=== PATIENT | male | born 1985 | race Two or more races ===

== ENCOUNTER 2019-10-05 14:36 | Emergency (ER) | payer SELFPAY ==
--- NOTE | 2019-10-05 14:51 | ED.GENADUL_ITS ---
Discharge Plan Disposition Patient Disposition: HOME Condition: Good Discharge Details Chief Complaint: Abd Prob Clinical Impression: BRBPR (bright red blood per rectum), Gastritis Primary Care Provider: None,None ED Provider: Blanca Draper Home Meds and New Rx's Prescriptions: New omeprazole 40 mg capsule,delayed release(DR/EC) 40 mg PO DAILY Qty: 14 RF: 0 Discharge Instructions Additional Instructions: Encourage water intake. Please see attached information on dietary changes. Please begin medication as prescribed. You will be contacted by care management regarding follow-up with primary care physician as well as general surgery. If you develop weakness, lightheadedness, increased pain, fever/chills or other new/worsening symptom please seek care urgently once again. Discharge Data Discharge Date/Time-TO BE ENTERED AT DEPARTURE: 10/05/19 17:14 Medical Decision Making <Chrystal Thompson - Last Filed: 10/06/19 15:58> 33-year-old Bulgarian-speaking only male presents with midepigastric abdominal pain and left upper quadrant abdominal pain constipation and rectal bleeding. He reports seeing blood in his stool today. Has been having abdominal pain on and off x1 month. Denies heavy alcohol use does drink occasionally, non-smoker no marijuana. No abdominal surgical history. Labs ordered including CBC, CMP UA, EKG and CT abdomen pelvis. Hemoccult stool grossly positive. Stool, culture ordered. Protonix 40 mg IV ordered. Rectal exam performed which was very tender and not tolerated by patient. No external hemorrhoids seen. Care is to be handed over to GARCÍA Salazar oncoming provider pending CT results. Most likely disposition is discharged home with PCP establishment and follow-up with GI. <GARCÍA Mireles - Last Filed: 10/05/19 17:17> Care was transitioned myself from Kristal Thompson NP, with CT pending. In brief, patient is here for 1month epigastric discomfort and bright red blood per rectum x2 days. Patient is given Protonix. Is been hemodynamically stable. Hemoglobin of 14.8. Morning labs are unremarkable. Rectal exam was performed and no hemorrhoids were noted patient did have bright red blood on exam. CT reviewed by radiologist: FINDINGS: Lungs: Small calcified granuloma in the right lower lobe. Liver: Unremarkable. Gallbladder and bile ducts: Unremarkable. No ductal dilation. Pancreas: Unremarkable. No ductal dilation. Spleen: Unremarkable. Adrenals: Unremarkable. Kidneys and ureters: No hydronephrosis or stones. Stomach and bowel: Stomach is unremarkable. No small bowel obstruction. Large bowel is unremarkable. Appendix: The appendix is normal. Intraperitoneal space: No pneumoperitoneum. No significant fluid collection. Vasculature: Unremarkable. Lymph nodes: No enlarged lymph nodes. Bladder: Unremarkable. Reproductive: Unremarkable as visualized. Bones/joints: Chronic right L5 spondylolysis. No acute fracture. Soft tissues: Unremarkable. IMPRESSION: 1. No acute intra-abdominal findings. 2. Other chronic findings, as above. Use diplomatic interpreter/translator line to discuss these findings with the patient. Advised that I am concerned that his epigastric pain is likely related to ulcer. Patient also may have an internal hemorrhoid but is unclear at this time. Plan refer to general surgery for possible colonoscopy and endoscopy. Patient also does not have a primary care and we have requested that would be established. Patient is also requesting to discuss insurance issues with care management. Plan to continue with omeprazole. Have referred to general surgery. All his questions and concerns were addressed and he is agreed with plan. He was given return precautions. Discussed dietary changes that he should begin implementing. HPI <Chrystal [place] Filed: 10/06/19 15:58> General Mode of arrival: ambulatory . Date/Time Provider Initiated Documentation: 10/05/19 14:36 . Limitations to Documentation: language barrier (Bulgarian-speaking only diplomatic interpreter/translator used) . Information obtained by: patient . HPI Narrative: 33-year-old Bulgarian-speaking only male presents with mid epigastric abdominal pain and rectal bleeding. Patient states that the abdominal pain has been going on intermittently x1 month. He had bright red blood with stool from rectum today. He does not report heavy alcohol use. He does state that he takes Aleve on a daily basis. No vomiting no fever. No abdominal surgical history. Related Data Home Medications Medication Instructions Recorded Confirmed omeprazole 40 mg PO DAILY #14 cap 10/05/19 Previous Rx's Medication Instructions Recorded omeprazole 40 mg PO DAILY #14 cap 10/05/19 General Stated Complaint: Abd Prob CARRI: 3 Review of Systems <Chrystal Thompson [facility] Filed: 10/06/19 15:58> Narrative: Constitutional: Negative for weight loss, alert and oriented, well groomed, normal body habitus, appears comfortable. HEENT: Denies trauma, headaches, blurry vision, nasal discharge, sore throat, trouble swallowing. Chest: Denies chest pain, palpitations, irregular rhythm, hypertension. Respiratory: Denies Shortness of breath, cough, hemoptysis. GI: Denies vomiting, diarrhea, positive constipation. : Denies dysuria, hematuria, flank pain, positive rectal bleeding. Neuro: Denies dizziness, blurry vision, weakness, syncope, headache or facial numbness. Hematologic: Denies easy bruising, intolerance to heat or cold, hair loss. PFSH <Chrystal Thompson - Last Filed: 10/06/19 15:58> Social History Alcohol Intake: never Drug use: Never Substance use type: does not use Do you feel safe at home: Yes Do you feel safe in your relationship?: Yes Exam <Chrystal Thompson - Last Filed: 10/06/19 15:58> Narrative Exam Narrative: Constitutional: Allert and oriented x3. Appears stated age. Normal body habitus. Head: Normocephalic, no trauma. Eyes: Pupils PERRLA, Red reflex noted, EOM's intact. Eyelids symmetrical withour lesions, discharge, or swelling. ENT: Bilateral TM's WNL, External ear normal to inspection, no mastoid TTP, swelling, or erythema, Nasal turbinates WNL, no nasal discharge. Normal dentition, Posterior pharynx WNL, no exudate. Chest: RRR, Normal S1, S2, distal pulses intact. Resp: Lungs clear to auscultation bilaterally, no wheezes, rales, or rhonchi. Musculoskeletal: Normal gait, 5/5 strength to all four extremities. Skin: No suspicious rashes or lesions. Capillary refill ?2 sec. Neurologic: Cranial nerves II-XII intact. Alert and oriented x 3. DTR's intact. Hematologic/Lymphatic: No ecchymosis, no lymphadenopathy. GI Inspection: normal to inspection Palpation: soft Rectal Exam: visual inspection normal, normal sphincter tone, abnormal stool blood-tinged, heme positive stool gross blood and tenderness Sign Out <Chrystal Thompson - Last Filed: 10/06/19 15:58> Sign Out Data: Sign Out Comment: Pending CT result Last updated by Chrystal Thompson at 10/05/19 16:08
[2019-10-05 14:56] VITALS: BP 137/84; PULSE 84; RESP 16; TEMP 37; O2SAT 98
[2019-10-05] MEDS: Pantoprazole 40 MG VIAL IVP (15:27)
[2019-10-05 15:28] LABS: Abs Immature Grans 0.02 k/cumm (0.0-0.09); Absolute Basophil Count 0.06 k/cumm (0.0-0.2); Absolute Eosinophil Count 0.34 k/cumm (0.0-0.7); Absolute Lymphocyte Count 1.37 k/cumm (1.2-3.4); Absolute Monocyte Count 0.42 k/cumm (0.11-0.7); Absolute Neutrophil Count 3.85 k/cumm (1.2-6.7); Eosinophils % 5.6; HCT 44.8 % (40.0-50.0); HGB 14.8 g/dL (13.5-17.5); Immature Grans % 0.3 %; Lymphocytes % 22.6; Mean Corpuscular Hemoglobin 26.4 pg (27.0-33.0); Mean Corpuscular Volume 79.9 fL (80-95); Mean Platelet Volume 11.3 fL (8.0-11.0); Monocytes % 6.9; Neutrophils % 63.6; Platelet Count 264 x1000/uL (130-400); RBC 5.61 m/cumm (4.50-6.00); RBC Distribution Width 14.1 % (11.8-14.1); White Blood Cell Count 6.06 k/cumm (4.4-10.8)
[2019-10-05 15:34] LABS: Bilirubin Negative (Negative); Blood Negative (Negative); Clarity Clear (Clear); Glucose Negative (Negative); Ketones Negative (Negative); Leukocyte Esterase Negative (Negative); Nitrite Negative (Negative); Urobilinogen 0.2 EU/dL (Up TO 0.2); pH 6.5 (5-8)
[2019-10-05 15:49] LABS: ALT 70 U/L (16-63); AST 32 U/L (15-37); Alkaline Phosphatase 109 U/L (46-116); Anion Gap 8.1 mmol/L (3-11); BUN 17 mg/dL (7-18); Bilirubin, Total 0.4 mg/dL (0.2-1.0); CO2 29.9 mmol/L (21.0-32.0); CREATININE 0.94 mg/dL (0.70-1.30); Calcium 8.6 mg/dL (8.5-10.1); Chloride 106 mmol/L (98-107); Glucose 104 mg/dL (74-106); Lipase 97 U/L (73-393); Potassium 4.1 mmol/L (3.5-5.1); Sodium 144 mmol/L (136-145); Total Protein 7.3 g/dL (6.4-8.2); Troponin I < 0.05 ng/Ml (<0.06)
[2019-10-05] MEDS: Omnipaque 350 MG/ML 100 ML BTL IJ (15:54)
--- NOTE | 2019-10-05 15:56 | DI.CT_ITS ---
EXAM: CT ABDOMEN PELVIS W CLINICAL HISTORY: Rectal bleeding, abdominal pain TECHNIQUE: Post IV contrast. Without oral contrast. COMPARISON: No exams were available for comparison FINDINGS: A calcification is seen at the right lung base. The liver, spleen, pancreas, kidneys, adrenals and g allbladder are unremarkable. There is no bowel dilatation or wall thickening. The appendix appears normal. The bladder and prostate are unremarkable. The aorta is normal in diameter. Right L5 spond ylolysis is incidentally noted. This appears old. IMPRESSION: No acute abnormality.
--- NOTE | 2019-10-05 16:23 | DI.VRAD_ITS ---
PROCEDURE INFORMATION: Exam: CT Abdomen And Pelvis With Contrast Exam date and time: 10/05/2019 2:51 PM Age: 33 years old Clinical indication: Generalized; Patient HX: Rectal bleeding, abdominal pain TECHNIQUE: Imaging protocol: Computed tomography of the abdomen and pelvis with intravenous contrast. COMPARISON: No relevant prior studies available. FINDINGS: Lungs: Small calcified granuloma in the right lower lobe. Liver: Unremarkable. Gallbladder and bile ducts: Unremarkable. No ductal dilation. Pancreas: Unremarkable. No ductal dilation. Spleen: Unremarkable. Adrenals: Unremarkable. Kidneys and ureters: No hydronephrosis or stones. Stomach and bowel: Stomach is unremarkable. No small bowel obstruction. Large bowel is unremarkable. Appendix: The appendix is normal. Intraperitoneal space: No pneumoperitoneum. No significant fluid collection. Vasculature: Unremarkable. Lymph nodes: No enlarged lymph nodes. Bladder: Unremarkable. Reproductive: Unremarkable as visualized. Bones/joints: Chronic right L5 spondylolysis. No acute fracture. Soft tissues: Unremarkable. IMPRESSION: 1. No acute intra-abdominal findings. 2. Other chronic findings, as above. Dictated and Authenticated by: Nathanael Menchaca MD. Ordering:NATANAEL Jarrell MD
[2019-10-05 16:24] VITALS: BP 113/64; PULSE 65; RESP 16; TEMP 36.5; O2SAT 97
[2019-10-08 10:59] LABS: Campylobacter PCR Negative (Negative); Salmonella PCR Negative (Negative); Shiga Toxin PCR Negative (Negative); Shigella/Enteroinvasive Ecoli Negative (Negative)
== END 2019-10-05 17:14 | disposition home or self-care (01) ==
PROVIDERS: Registered Nurse Emergency; Emergency Provider Physician Assistant
DX: K29.01 Acute gastritis with bleeding (principal); R10.13 Epigastric pain; R10.12 Left upper quadrant pain; R19.5 Other fecal abnormalities
CPT/HCPCS: 36415; 80053; 83690; 87505; 93005; 96374; 99285; 74177; 81003; 82270; 84484; 85025; 93010; 99284; J3490

== ENCOUNTER 2023-01-11 15:00 | Outpatient (REF) | payer SELFPAY ==
[2023-01-11 21:19] LABS: Abs Immature Grans 0.02 10^3/uL (0.0-0.06); Absolute Basophil Count 0.06 10^3/uL (0.0-0.2); Absolute Eosinophil Count 0.21 10^3/uL (0.0-0.7); Absolute Monocyte Count 0.45 10^3/uL (0.1-0.8); Absolute Neutrophil Count 3.81 10^3/uL (1.2-6.7); Basophils % 1.1; Eosinophils % 3.7; HCT 44.9 % (40.0-50.0); HGB 14.9 g/dL (13.5-17.5); Immature Grans % 0.4; Lymphocytes % 19.5; MCH 26.7 pg (27.0-33.0); MCHC 33.2 % (32.0-36.0); MCV 80 fL (80-95); MPV 11.5 fL (8.0-11.0); Neutrophils % 67.3; Platelet Count 223 10^3/uL (130-400); RBC 5.59 10^6/uL (4.36-5.78); RDW 13.1 % (11.8-14.1); RDW-SD 37.8 fL; WBC 5.65 10^3/uL (4.4-10.8)
[2023-01-11 21:25] LABS: ESR 14 mm/hr (0-15)
[2023-01-11 21:26] LABS: C-Reactive Protein 2.14 mg/dL (0.0-0.3)
== END 2023-01-11 15:01 | disposition home or self-care (01) ==
LOC: LBN 15:00
PROVIDERS: Visit Provider Nurse Practitioner Family
DX: R10.32 Left lower quadrant pain (principal)
CPT/HCPCS: 85652; 85025; 86140

== ENCOUNTER 2023-10-14 07:04 | Day surgery (SDC) | payer SELFPAY ==
--- NOTE | 2023-10-13 16:52 | W.PREOPHP ---
Assessment and Plan Assessment and plan (1) Anal fistula: Status: Acute Assessment and plan: We reviewed the plan for anal rectal exam under anesthesia, and the possible interventions that may be done according to the findings. I explained the risks of these procedures, with a particular focus on pain, infection, and the less likely injury to the sphincter muscles which could result in some fecal incontinence. I also explained that if the fistula is quite deep to the sphincter complex, he may be treated with a seton, and referral for a mucosal advancement flap. I think he has a good understanding the nature of the procedure and what to expect in the terms of recovery. He was able to provide informed consent with the assistance of language line, and we can move forward with the surgery at this point. History of Present Illness History of Present Illness Chief Complaint: anal fistula Narrative: Is a here for anorectal exam under anesthesia and most likely fistulectomy and closure. He has been dealing with the anal fistula for approximately 5 to 6 months. The fistula keeps swelling and then it will drain thick purulent type discharge. His fissure does seem to have slowly been getting better since having started on psyllium husk. He is having continuous pain mostly from irritation due to the moisture from the fistula drainage. He has a small amount of bleeding when he goes to the bathroom.'s mostly on the toilet paper. He does have a history of hemorrhoids. He does not have a family history of colon or rectal cancer. He does not have a family history of Crohn's or ulcerative colitis. He has a history of gastritis for which she takes omeprazole 40 mg daily. Since his last visit with Dr. Mullen, he had no other significant interval changes in his history or physical. PFSH All Active Problems Anal fistula (Acute) Gastritis (Acute) BRBPR (bright red blood per rectum) (Acute) Medical History Constipation resolved on psyllium Hemorrhoids Pterygium Prediabetes Social History Smoking/Tobacco Use Status: Current-Occasional Tobacco Type: cigarettes Smoking risk assessment performed?: Yes Alcohol Intake: never Drug use: Occasionally Substance use type: marijuana Housing: house Do you feel safe at home: Yes Do you feel safe in your relationship?: Yes Meds Allergies and Home Medications Allergies Allergy/AdvReac Type Severity Reaction Status Date / Time No Known Allergies Allergy Verified 10/14/23 07:15 Home Medications Medication Instructions Recorded Confirmed Type omeprazole 40 mg capsule,delayed 40 mg PO DAILY #14 caps 10/05/19 10/14/23 Rx release ibuprofen 200 mg capsule (Advil 600 mg PO Q8H PRN 10/11/23 10/14/23 History Liqui-Gel) Exam Const General: cooperative and not in acute distress Neck Neck: normal visual inspection, no lymphadenopathy and supple Thyroid: thyroid normal Resp Effort & Inspection: normal respiratory effort Auscultation: clear to auscultation bilaterally Cardio Jugular venous pressure: no JVD Rate: regular rate Rhythm: regular rhythm Heart Sounds: S1 normal and S2 normal GI Inspection: normal to inspection Palpation: soft, no guarding, no hernias and nontender Percussion: normal to percussion Auscultation: normal bowel sounds Neuro General: patient alert, patient awake and patient oriented x3 Psych Appearance: grossly normal
--- NOTE | 2023-10-13 16:52 | W.PM.DSUDISC ---
Date of service: 10/14/23 Time of Service: 10:41 Discharge Plan Disposition Patient Disposition: Home Condition: Good Discharge Details Reason For Visit: Anorectal exam under anesthesia with fistulectomy Attending Provider: Cecilio Blount Primary Care Provider: Mynor Elizalde Home Meds and New Rx's Prescriptions: New hydromorphone [Dilaudid] 2 mg tablet 2 mg PO Q4H PRNQty: 18 0RF Rx Instructions: Do not drive while using this medication diazepam [Valium] 5 mg tablet 5 mg PO TID PRNQty: 15 0RF Rx Instructions: Do not drive while using this medication polyethylene glycol 3350 [Miralax] 17 gram/dose powder 17 g PO DAILY Qty: 119 0RF Continued omeprazole 40 mg capsule,delayed release(DR/EC) 40 mg PO DAILY Qty: 14 0RF ibuprofen [Advil Liqui-Gel] 200 mg capsule 600 mg PO Q8H PRN Discharge Instructions Instructions: Anorectal Abscess and Anal Fistula (DC) Additional Instructions: Ghanshyam, you did very well in the operating room today. As you probably already understand, you had a large complex of fistula to the right side of your anus. A majority of this was confined to the skin of the buttock, and I excised this all, and closed the skin over top of the incision. Unfortunately, you have another smaller fistula that does extend well inside of your anus. This is too deep for me to treat here today, and I suspect that you will ultimately need to see a colo-rectal specialist for a separate procedure called an anorectal advancement flap. For now, the most important part is that you have a good recovery from this excision. I have attached some basic instructions below in an effort to help keep the area clean, and try to minimize her pain is much as possible. I am also providing prescriptions for pain medications, and a medicine to make sure that you have loose stools in the days to come. I have set up a follow-up appointment in our office on October 19 at 2:45 PM to check the incision, and make a plan together regarding her long-term treatments. If you have any questions in the meantime, please do not hesitate to call. 1. If you do not have the bathtub at home, obtain a sitz bath from any pharmacy. Soak for 10-15 minutes in warm water mixed with half a cup of baking soda, or Epson, salts after each bowel movement, or up to 5 times per day as needed for pain. 2. Take Miralax 1 capful in an 8 oz beverage daily to keep the stools soft. The amount of Miralax can be reduced if your are having frequent stools. If no Bowel Movement by bedtime, take Milk of Magnesia 1 or 2 tablespoonfuls. 3. You may also take: Tylenol or Ibuprofen (Advil, Motrin OTC) 1 or 2 tablets every 4 hours if pain is not too severe. Dilaudid (2 mg) one tablet every four hours as needed for severe pain. Dilaudid will be constipating. You may stagger the dosing of Tylenol, Advil/Motrin, and Dilaudid for more effective pain relief. Valium (5mg) 1 tablet every 6 hours as needed for rectal pain/spasms. Hospital ointment: Apply to the anal area before a BM, after baths and as needed. Baby Wipes: To clean the anal area after a BM and as needed. DRESSING: Use a menstrual pad in your underwear as dressing for your anus. Change 2 or 3 times daily and as needed to keep dry. Activity:: Activity as Tolerated Shower/Bathe:: 24 hours Diet:: As Tolerated DS: Diagnosis Discharge Diagnosis (1) Anal fistula: Status: Acute Asessment and Plan: Status post fistulectomy with closure. Follow-up in the office
--- NOTE | 2023-10-13 16:57 | ROE_ITS ---
Date of service: 10/14/23 Time of Service: 10:59 Operative Note Operative Note DATE OF PROCEDURE: 10/14/23 PRE-OP DIAGNOSIS: Anorectal fistula POST-OP DIAGNOSIS: same PROCEDURE: Anorectal exam under anesthesia with fistulectomy and primary closure SURGEON: Cecilio Blount FRONT END SPECIALIST: Yulisa Greenfield Refer to Anesthesia Record ESTIMATED BLOOD LOSS: 15 PATHOLOGY: other (Perianal fistula) COMPLICATIONS: None Patient was transported to: PACU Patient's condition: stable Indications: Who is a is a 37-year-old male who has had a draining perianal fistula for several months. Findings: 2 separate perianal fistulas. 1 was a small complex of fistulous tracts which was completely excised and primarily closed. The second smaller fistula is a true rectal fistula, extending at least 4 cm above the dentate line. Clinical features are concerning for a transfer icteric fistula Procedure Description: After the induction of general anesthesia, the patient was moved into lithotomy positioning. Great care was taken to pad him appropriately. Next, the perineum was prepped and draped in the usual fashion. With the perineum at the 12 o'clock position, there is a small complex of fistulous material around 9:00 to the anus. Approximately 4 to 5 cm distal to the anal verge. There are 3 separate openings. The largest of these was gently irrigated with hydrogen peroxide solution, and it was clear that all of these fistula were connected. Next, I performed a digital anorectal examination. It all felt normal. There were no masses. There was another fistula again, in the 9 o'clock position. It is approximately 2 cm from the anal verge. The external opening is much smaller. This was also irrigated with hydrogen peroxide, and bubbles were seen emanating from the anal column. Next, using a Hill-Hair retractor, I carefully examined the circumference of the anal column and distal rectum. Again, with hydrogen peroxide irrigation, I could see the proximal internal portion of this second fistula it was about 4 cm from the anal verge, but it was quite difficult to adequately expose. Next, I gently probed this fistula with a lacrimal duct probe. I am not able to completely cannulate the fistula tract. It does seem to have a transsphincteric trajectory. Ideally, I would place a seton here, but despite several efforts, I could not fully cannulate this fistula. Given the trajectory, I felt the safest thing to do at this point was to leave it alone. I turned my attention back to the other more external fistula complex. I established a generous perianal field block using Exparel, and with the assistance of an internal digital anorectal exam, I performed initial nerve block as well. Next, I used a semielliptical incision to encompass the entire fistula complex. There is approximately 3 cm in its longest dimension by approximately 1 and half centimeters in its widest. I dissected down into the subcutaneous fat. The fascial complex was dissected away using combination of blunt dissection as well as Bovie electrocautery. As I worked up towards the anus, great care was taken to ensure no injury to the sphincter complex. All of the fistula seem to be superficial to the sphincter muscles, and they were not discretely encountered. The fistula complex was excised entirely, passed off the field as a specimen. Bovie electrocautery was used to assist with hemostasis. The wound was irrigated clean. The deep layers were closed with interrupted 2-0 Vicryl stitches, the skin was approximated with 3-0 Vicryl sutures. Surgical field was then rinsed clean, and a small amount of bacitracin ointment was applied to the incision site. The patient was allowed awaken from anesthesia and transferred to the recovery unit.
[2023-10-14] VITALS (11 sets, daily range): BP systolic 84–146; BP diastolic 52–94; PULSE 72–86; RESP 11–24; TEMP 36.5–37; O2SAT 91–97; BMI 48.4
--- NOTE | 2023-10-14 06:25 | ANES.PREOP_ITS ---
General Info Date of Service Date Performed: 10/14/23 Height: 5 ft 4.96 in Weight: 131.995 kg Body Mass Index (BMI): 48.4 Surgical Procedure: Operation Date: 10/14/23 08:25 Proposed Procedure Side Surgeon artur MENDEZ, Fistulectomy vs Fistulotomy Cecilio Blount MD s Possible Internal Hemorrhoid Banding Cecilio Blount MD Meds Allergies and Home Medications Allergies Allergy/AdvReac Type Severity Reaction Status Date / Time No Known Allergies Allergy Verified 10/14/23 07:15 Home Medication Medication Instructions Recorded omeprazole 40 mg capsule,delayed 40 mg PO DAILY #14 caps 10/05/19 release ibuprofen 200 mg capsule (Advil 600 mg PO Q8H PRN 10/11/23 Liqui-Gel) Current Visit Medications: Current Medications Generic Name Dose Route Start Last Admin Trade Name Freq PRN Reason Stop Dose Admin Acetaminophen 1,000 mg 10/14/23 06:00 Acetaminophen 500 Mg Tab PO 10/14/23 23:59 PREOP HAROON Celecoxib 200 mg 10/14/23 06:00 Celecoxib 200 Mg Cap PO 10/14/23 23:59 PREOP HAROON Gabapentin 600 mg 10/14/23 06:00 Gabapentin 300 Mg Cap PO 10/14/23 23:59 PREOP HAROON Metronidazole 750 mg/ Device 150 mls @ 150 mls/hr 10/14/23 06:00 IVPB 10/14/23 23:59 PREOP HAROON Ringer's Solution 1,000 mls @ 80 mls/hr 10/14/23 06:00 IV 10/14/23 23:59 INF[facility]ION [facility] IV Miscellaneous Supplies 1 each 10/14/23 06:00 Iv Access IV 10/14/23 23:59 DIRECTED HAROON Sodium Biphosphate/Sodium Phosphate 133 ml 10/14/23 06:00 Na Phosphate Enema 133 Ml Btl ME 10/14/23 23:59 DIRECTED HAROON Sodium Chloride 0 ml 10/14/23 06:00 Normal Saline Flush 10 Ml Syr IV 10/14/23 23:59 PRN PRN Sodium Chloride 0 ml 10/14/23 06:00 Normal Saline 10 Ml Vial IJ 10/14/23 23:59 DIRECTED PRN Sterile Water 0 ml 10/14/23 06:00 Water,Injection,Sterile 10 Ml Vial IJ 10/14/23 23:59 DIRECTED PRN PFSH Active Problems Active Problems: Problem Status Onset Code Anal fistula K60.3 Gastritis K29.70 BRBPR (bright red blood per rectum) K62.5 Medical History Medical History Constipation resolved on psyllium Hemorrhoids Pterygium Prediabetes Tobacco Smoking/Tobacco Use Status: Current-Occasional Tobacco Type: cigarettes Alcohol Alcohol Intake: never Substance Use Substance use: Occasionally Substance use type: marijuana Vital Signs and Lab Results Vital Signs Most Recent Vital Signs in EMR: Temp Pulse Resp BP Pulse Ox 37.0 C 85 16 146/94 H 97 10/14/23 07:31 10/14/23 07:31 10/14/23 07:31 10/14/23 07:31 10/14/23 07:31 Lab Results Blood Type / Crossmatch: No Data to Display Complete Blood Count: No Data to Display Complete Metabolic Panel: No Data to Display Liver Function Panel: No Data to Display Coagulation Panel: No Data to Display Cardiac Panel: No Data to Display Arterial Blood Gas: No Data to Display Venous Blood Gas: No Data to Display Pancreas Panel: No Data to Display Thyroid Panel: No Data to Display Infectious Disease: No Data to Display Blood Cultures: No Data to Display Toxicology Panel: No Data to Display Anesthesia Assessment and Plan Anesthesia History Personal History: No History of Anesthesia Complications Family History: No Family History of Anesthesia Complications Exercise Tolerance Exercise Tolerance: Metabolic Equivalents>4 Cardiac & Pulmonary Exam Cardiac Exam: Normal S1/S2 Heart Sounds Pulmonary Exam: Clear Bilateral Breath Sounds Implantable Cardiac Device Does patient have a Pacemaker or an ICD?: No Airway Exam Known Difficult Airway: No Mallampati Class: 4 Mouth Opening: Narrow (< 3cm) Thyromental Distance: Greater than 3 cm Neck Range of Motion: Full ROM Neck Circumference: Thick Teeth Condition: Normal Dentition ASA Classification ASA Score: ASA 3 Emergency Case?: No NPO Status NPO Status: NPO Clears >2 hours, Solids >8 hours Anesthesia Plan Resuscitation Status: Full Code Anesthesia Technique: General Anesthesia Airway Planned: LMA Monitors Used: Standard Monitors Preoperative Comments:: 37 yo male for EUA, fistulotomy. Sig PMHx: GERD (fells good today, sleeps flat, well controlled), preDM, occ smoker/cannabis occ. interview and consent done via language line.
[2023-10-14] MEDS: Celecoxib 200 MG CAP PO (07:43)
[2023-10-14] MEDS: Acetaminophen 500 MG TAB 1000 MG PO (07:43)
[2023-10-14] MEDS: Gabapentin 300 MG CAP 600 MG PO (07:43)
[2023-10-14] MEDS: Lactated Ringers 1,000 ML 80 ML IV (09:15)
[2023-10-14] MEDS: Hydrogen Peroxide 3% 480 ML BTL (09:45)
[2023-10-14] MEDS: Bupivacaine LIPOSOME/PF 133 MG/10 ML VIAL IJ (09:45)
[2023-10-14] MEDS: Bupivacaine 0.25% Pres-Free 30 ML VIAL (09:45)
--- NOTE | 2023-10-14 09:53 | BOWEL_PTH ---
PATIENT: Lynette Mendoza LOC: [facility] U#:[id number] AGE/SX: 37/M ROOM: RE10/14/[address]: Cecilio Blount MD : [id number] BED: DIS: 10/14/2023 SPEC #: [id number] RECD: 10/14/23 12:29 STATUS: DEBI REQ #: [id number] ABDULKADIR: 10/14/23 09:[address]: Cecilio Blount DEPT: Surgical Specimen RECD BY: Peggy Leggett ENTERED: 10/14/23 12:30 SP TYPE: Bowel OTHR DR: Mynor Elizalde Tissues: 1 - BIOPSY BOWEL Procedures: GROSS AND MICRO LEVEL 3 Comments: [id number]
[2023-10-14] MEDS: fentaNYL 100 MCG/2 ML VIAL IVP (11:42)
--- NOTE | 2023-10-14 11:45 | W.ANESPOSTOP ---
Postoperative Evaluation Date, Time and Location Date Performed: 10/14/23 Time Performed: 11:45 Patient Location: PACU Vital Signs Most Recent Imported Vital Signs: Most Recent Vital Signs Temp Pulse Resp BP Pulse Ox 36.5 C 74 13 110/57 L 97 10/14/23 11:25 10/14/23 11:25 10/14/23 11:25 10/14/23 11:25 10/14/23 11:25 Pain Score Most Recent Pain Score: Most Recent Pain Score Pain Level 8 10/14/23 11:25 Assessment Mental Status: Arousable with meaningful communication Airway and Respiratory Function: Patent airway with normal (patient baseline) respiratory exam Cardiovascular Function: Hemodynamically Stable Hydration Status: Adequately Hydrated Nausea & Vomiting: No Nausea or Vomiting Pain: Pain is tolerable per patient Peripheral Nerve Block: Patient did not receive a nerve block
[2023-10-14] MEDS: HYDROmorphone 2 MG TAB PO (12:31)
== END 2023-10-14 13:28 | disposition home or self-care (01) ==
LOC: SUR 07:05
PROVIDERS: PCP Family Medicine; Visit Provider Surgery
PROC: (CPT 46270; principal; 2023-10-14 08:15)
DX: K60.3 Anal fistula (principal); R73.03 Prediabetes; K64.8 Other hemorrhoids; K62.89 Other specified diseases of anus and rectum
CPT/HCPCS: 46270; 88305; 88304; C9290; J0665; J1100; J1805; J1836; J2250; J2371; J2405; J2704; J3010

== ENCOUNTER 2025-05-23 06:00 | Day surgery (SDC) | payer SELFPAY ==
[2025-05-23 06:15] VITALS: BP 127/84; PULSE 72; RESP 16; TEMP 36.5; O2SAT 97
--- NOTE | 2025-05-23 07:01 | W.ANESPRE ---
General Info Date of Service Date Performed: 05/23/25 Height: 5 ft 4 in Weight: 124.6 kg Body Mass Index (BMI): 47.1 Surgical Procedure: Operation Date: 05/23/25 07:35 Proposed Procedure Side Surgeon artur Mirza MD Meds Allergies and Home Medications Allergies Allergy/AdvReac Type Severity Reaction Status Date / Time No Known Allergies Allergy Verified 05/23/25 06:35 Home Medication ?Medication ?Instructions ?Recorded ibuprofen 200 mg capsule (Advil 600 mg PO Q8H PRN 10/11/23 Liqui-Gel) polyethylene glycol 3350 17 17 g PO DAILY #119 grams 10/14/23 gram/dose oral powder (Miralax) bacitracin zinc 500 unit/gram 1 applic topical TID #14 grams 10/19/23 topical ointment (Antibiotic (bacitracin zinc)) bisacodyl 5 mg tablet,delayed 5 mg PO ONCE #4 tabs 03/15/25 release (Dulcolax (bisacodyl)) polyethylene glycol 3350 17 17 g PO ONCE #238 grams 03/15/25 gram/dose oral powder Current Visit Medications: Current Medications Generic Name Dose Route Start Last Admin Trade Name Freq PRN Reason Stop Dose Admin Ringer's Solution 1,000 mls @ 80 mls/hr 05/23/25 06:00 IV 05/23/25 23:59 INFUSION HAROON IV Miscellaneous Supplies 1 each 05/23/25 06:00 Iv Access IV 05/23/25 23:59 DIRECTED HAROON Sodium Chloride 0 ml 05/23/25 06:00 Normal Saline Flush 10 Ml Syr IV 05/23/25 23:59 PRN PRN Sodium Chloride 0 ml 05/23/25 06:00 Normal Saline 10 Ml Vial IJ 05/23/25 23:59 DIRECTED PRN Sterile Water 0 ml 05/23/25 06:00 Water,Injection,Sterile 10 Ml Vial IJ 05/23/25 23:59 DIRECTED PRN PFSH Active Problems Active Problems: Problem Status Onset Code Anal fistula, complex, persistent Acute K60.322 Anal pain Acute K62.89 Surgical wound present Acute T14.8XXA Anal fistula Acute K60.3 Gastritis Acute K29.70 BRBPR (bright red blood per rectum) Acute K62.5 Medical History Medical History Constipation resolved on psyllium Hemorrhoids Pterygium Prediabetes Surgical History Surgical History History of exam under anesthesia with ligation of intersphincteric fistula tract (~09/2023) Primary closure Tobacco Smoking/Tobacco Use Status: Former Tobacco Use Passive smoking exposure: Yes Alcohol Alcohol Intake: current Alcohol intake frequency: a few times a month Substance Use Substance use type: does not use Vital Signs and Lab Results Vital Signs Most Recent Vital Signs in EMR: Most Recent Vital Signs Temp Pulse Resp BP Pulse Ox 36.5 C 72 16 127/84 97 05/23/25 06:15 05/23/25 06:15 05/23/25 06:15 05/23/25 06:15 05/23/25 06:15 Anesthesia Assessment and Plan Anesthesia History Personal History: No History of Anesthesia Complications Family History: No Family History of Anesthesia Complications Exercise Tolerance Exercise Tolerance: Metabolic Equivalents>4 Pertinent Negatives Pertinent Negatives: No Symptoms of GERD Cardiac & Pulmonary Exam Cardiac Exam: Normal S1/S2 Heart Sounds Pulmonary Exam: Clear Bilateral Breath Sounds Implantable Cardiac Device Does patient have a Pacemaker or an ICD?: No Airway Exam Known Difficult Airway: No Mallampati Class: 4 Mouth Opening: Narrow (< 3cm) Thyromental Distance: Greater than 3 cm Neck Range of Motion: Full ROM Neck Circumference: Thick Teeth Condition: Normal Dentition ASA Classification ASA Score: ASA 3 Emergency Case?: No NPO Status NPO Status: NPO Clears >2 hours, Solids >8 hours Anesthesia Plan Resuscitation Status: Full Code Anesthesia Technique: General Anesthesia Airway Planned: Natural Airway Monitors Used: Standard Monitors
[2025-05-23] MEDS: Lactated Ringers 1,000 ML 80 ML IV (07:10)
--- NOTE | 2025-05-23 07:24 | W.PM.HP.N ---
Date of service: 05/23/25 Time of Service: : Assessment and Plan Assessment and plan (1) BRBPR (bright red blood per rectum): Status: Acute Assessment and plan: BRBPR and anal pain and fistulas. Endoscopy for rule out of IBD and evaluation for other problems on the differential indicated. Consent form signed and patient is ready. Return to see GI after scopes. (2) Anal fistula: Status: Acute (3) Anal pain: Status: Acute History of Present Illness History of Present Illness Chief Complaint: here for colonoscopy Narrative: 39yo M here for scheduled elective colonoscopy. 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 He has anal pain, bright red rectal bleeding, and recurring anal fistulas. He has no questions this morning. Prep went smoothly, stools are clear. PFSH All Active Problems Anal fistula, complex, persistent (Acute) Anal pain (Acute) Surgical wound present (Acute) Anal fistula (Acute) Gastritis (Acute) BRBPR (bright red blood per rectum) (Acute) Medical History Constipation resolved on psyllium Hemorrhoids Pterygium Prediabetes Surgical History History of exam under anesthesia with ligation of intersphincteric fistula tract (~09/2023) Primary closure Social History Smoking/Tobacco Use Status: Former Tobacco Use Smoking risk assessment performed?: Yes Alcohol Intake: current Alcohol Intake frequency: a few times a month Substance use type: does not use Housing: house Additional Social history: [employer] Meds Allergies and Home Medications Allergies Allergy/AdvReac Type Severity Reaction Status Date / Time No Known Allergies Allergy Verified 05/23/25 06:35 Home Medications ?Medication ?Instructions ?Recorded ?Confirmed ?Type ibuprofen 200 mg capsule (Advil 600 mg PO Q8H PRN 10/11/23 05/23/25 History Liqui-Gel) polyethylene glycol 3350 17 17 g PO DAILY #119 grams 10/14/23 05/23/25 Rx gram/dose oral powder (Miralax) bacitracin zinc 500 unit/gram 1 applic topical TID #14 grams 10/19/23 05/23/25 Rx topical ointment (Antibiotic (bacitracin zinc)) bisacodyl 5 mg tablet,delayed 5 mg PO ONCE #4 tabs 03/15/25 05/23/25 Rx release (Dulcolax (bisacodyl)) polyethylene glycol 3350 17 17 g PO ONCE #238 grams 03/15/25 05/23/25 Rx gram/dose oral powder Exam Narrative Exam Narrative: awake, NAD eomi, MMM midline trachea, neck is symmetric PULM: normal resp effort, equal chest rise with respiration, no wheezing audible CARDIAC: normal PMI, no jvd, regular rate, normal perfusion abdomen is nondistended. extremities are without deformity, normal movement of all four extremities speech is clear and coherent mood and affect are congruent, no focal neurological deficits skin without rash Results Last Vital Signs Temp 97.7 F 05/23/25 06:15 Pulse 72 05/23/25 06:15 Resp 16 05/23/25 06:15 BP 127/84 05/23/25 06:15 Pulse Ox 97 05/23/25 06:15 Time Spent Time spent with Patient: <40 minutes Time was spent: preparing to see the patient(eg.review tests), referring, communicating with other health weekend caregiver and counseling the patient
[2025-05-23 07:26] VITALS: BMI 47.1
--- NOTE | 2025-05-23 07:38 | W.PM.DSUDISC ---
Date of service: 05/23/25 Discharge Plan Disposition Patient Disposition: Home Condition: Stable Discharge Details Attending Provider: Lavern Mirza Primary Care Provider: Lynne Ruiz Home Meds and New Rx's Prescriptions: Continued bacitracin zinc [Antibiotic (bacitracin zinc)] 500 unit/gram ointment 1 applic topical TID Qty: 14 0RF Rx Instructions: Apply to affected area once in the morning, once in the afternoon, once in the evening. polyethylene glycol 3350 17 gram/dose powder 17 g PO ONCE Qty: 238 0RF Rx Instructions: Take per colonoscopy instructions provided by ordering providers office ibuprofen [Advil Liqui-Gel] 200 mg capsule 600 mg PO Q8H PRN Discontinued bisacodyl [Dulcolax (bisacodyl)] 5 mg tablet,delayed release (DR/EC) 5 mg PO ONCE Qty: 4 0RF Rx Instructions: Take per colonoscopy instructions provided by ordering providers office polyethylene glycol 3350 [Miralax] 17 gram/dose powder 17 g PO DAILY Qty: 119 0RF Discharge Instructions Additional Instructions: Corea colonoscopia de hoy sali? normal. No hay signos de enfermedad en el colon/rectum. El dolor y sangrado anal proviene de f?stulas, no hay otros problemas. Activity:: Activity as Tolerated Shower/Bathe:: 24 hours Diet:: As Tolerated Discharge Orders Discharge Orders: Discharge Order (Routine); Ordered 05/23/25 Ordered By: Lavern Mirza DS: Diagnosis Discharge Diagnosis (1) BRBPR (bright red blood per rectum): Status: Acute (2) Anal fistula: Status: Acute (3) Anal pain: Status: Acute
--- NOTE | 2025-05-23 07:52 | W.COLOREPORT ---
Date of service: 05/23/25 Time of Service: 07:52 Colonoscopy Report Pre-op diagnosis general: anal pain, anal fistula, BRBPR Post-op diagnosis procedure note: same Procedure: Colonoscopy Surgeon: Lavern Mirza Anesthesia Type: General:No Airway Estimated blood loss (mL): 0 Pathology: none sent Complications: None Prep: Miralax/Dulcolax (Good/excellent) Procedure Description: Informed consent was obtained and the patient was taken to the procedure area. The patient was placed in left lateral decubitus position on the procedure table. Timeout was performed. Anesthesia was induced. A lubricated colonoscope was inserted through the anus and passed to the cecum. The cecum was identified by the ileocecal valve and the appendiceal orifice. The scope was then slowly withdrawn and the colonic and rectal mucosa examined. TI intubated and examined. It appears normal. There are no colon or rectal mass lesions, polyps, AVMs. There is no inflammatory change. No diverticulosis was seen. The scope was retroflexed in the anorectal junction examined. Uncomplicated internal hemorrhoids present. Inflammatory change present on the hemorrhoids. No internal signs of fistula seen. Assessment and plan: Normal colonoscopy. Next screening colonoscopy will be due in 10 years. The anal pain and bleeding is likely due to inflammation from fistula and hemorrhoids. No mass lesion or IBD. Return to GI at [facility] [place] for continued care.
[2025-05-23 07:57] VITALS: BP 118/75; PULSE 80; RESP 15; TEMP 36.1; O2SAT 93
[2025-05-23 08:43] VITALS: BP 133/91; PULSE 69; RESP 16; TEMP 36.3; O2SAT 94
--- NOTE | 2025-05-23 09:06 | W.ANESPOSTOP ---
Postoperative Evaluation Date, Time and Location Date Performed: 05/23/25 Time Performed: 09:06 Patient Location: Day Surgery Unit Vital Signs Most Recent Imported Vital Signs: Most Recent Vital Signs Temp Pulse Resp BP Pulse Ox 36.3 C L 69 16 133/91 H 94 05/23/25 08:43 05/23/25 08:43 05/23/25 08:43 05/23/25 08:43 05/23/25 08:43 Pain Score Most Recent Pain Score: Most Recent Pain Score Pain Level 0 05/23/25 08:43 Assessment Mental Status: Awake (Alert & Oriented to Patient Baseline) Airway and Respiratory Function: Patent airway with normal (patient baseline) respiratory exam Cardiovascular Function: Hemodynamically Stable Hydration Status: Adequately Hydrated Nausea & Vomiting: No Nausea or Vomiting Pain: Pt. Denies Any Pain Peripheral Nerve Block: Patient did not receive a nerve block
== END 2025-05-23 09:10 | disposition home or self-care (01) ==
PROVIDERS: PCP Colon & Rectal Surgery; Visit Provider Surgery
PROC: 0DJD8ZZ Inspection of Lower Intestinal Tract, Via Natural or Artificial Opening Endoscopic (ICD-10-PCS; CPT 45378; principal; 2025-05-23 07:30)
DX: K62.5 Hemorrhage of anus and rectum (principal); K62.89 Other specified diseases of anus and rectum
CPT/HCPCS: 45378; J2704